=== PATIENT | female | born 1940 | race Two or more races ===

== ENCOUNTER 2023-06-09 14:05 | Emergency (ER) | payer OTHER ==
[~2023-06-09] VITALS: Ht 149.9 cm; Wt 63.5 kg
[~2023-06-09 14:05] MED LIST: INTESTINEX1 CA1 PO; RE CHLORDIAZEP1 EACH PO
[2023-06-09] MEDS ORDERED: SYNTHROID88 MCG PO (14:35)
[2023-06-09] MEDS ORDERED: METOPROLOL SUCC25 MG PO (14:36)
== END 2023-06-09 18:40 | disposition home or self-care (01) ==
LOC: ER 14:06
DX: I10 Essential (primary) hypertension (principal); Z85.21 Personal history of malignant neoplasm of larynx; Z88.8 Allergy status to other drugs, medicaments and biological substances